=== PATIENT | female | born 1940 | race Caucasian/White ===

== ENCOUNTER → 2016-09-07 | Outpatient (CLI) | payer MEDICARE, BC, OTHER ==
[~2016-09-07] MED LIST: ADALAT CC PO; ALLERGY SHOT; ASPIRIN81 M2 PO; ASPIRINEC PO; CALCIUM 600 + D1 TA1 PO; CALCIUM 600 + D1 TAB PO; CENTRUM SILVER PO; CENTRUM SILVER1 EAC1 PO; COUMADIN5 MG PO; COZAAR100 MG PO; CRESTOR5 MG PO; DIPHENHYDRAMINE25 M2 PO; FERROUS SULFATE PO; FISH OIL500 MG PO; IBUPROFEN400 MG PO; LEVOTHYROXINE88 MCG PO; LEVOXYL88 MC1 PO; MAPAP325 M1 PO; MONTELUKAST SOD10 MG PO; MULTI-VIT/MIN P1 TAB PO; NORVASC10 MG PO; OMEPRAZOLE20 M2 PO; OYSTER CALCIUM500 MG PO; PERCOCET 10/31 UDTA1 PO; PRILOSEC PO; PRILOSEC20 MG PO; SINGULAIR PO; SYNTHROID PO; TEARGEN; WELCHOL625 MG PO; ZETIA PO; ZYRTEC PO; ZYRTEC10 M1 PO
--- NOTE | ~2016-09-07 | BD1 ---
[facility] A Service of [facility] & [facility] RADIOLOGY TEXT RESULTS PATIENT: KARL FERGUSON LOCATION: [facility] : 44 UNIT #: [id number] AGE: [address]: Pratik Armenta MD SEX: F ORDER DR: [id number] [facility] [address] [place], [place] [address] [id number] O MR#: [id number] Acc #: [id number] NAME: KARL FERGUSON : 1940 SEX: F STUDY DATE/TIME: 09/07/2016 10:13 UNIT: [facility] ROOM: STUDY DESCRIPTION: BD Dexa Bone Dens 1+ Site Attending Physician: Pratik Armenta M.D. Referring Physician: Pratik Armenta M.D. Ordering Physician: Pratik Armenta M.D. Primary Care Physician: Pratik Armenta M.D. MEDICAL IMAGING REPORT This report is preliminary unless electronic signature is present EXAM Bone density spine/hip 09/07/2016 HISTORY Osteoporosis. History of osteoporosis in mother. Nonsmoker. Postmenopausal. TECHNIQUE Bone density scanning performed upper 4 lumbar vertebral segments and proximal left femur in a 172 pounds 76-year-old female. COMPARISON STUDIES 07/30/2014. FINDINGS The L1-L4 total bone mineral density is 0.793 g/cm2 for T-score 2.3 standard deviations below mean for reference population normal young individuals and Z-score 0 standard deviations from the mean for age-match population. Compared to 07/30/2014, there has been a 11.4% decrease in bone mineral density in the upper 4 lumbar vertebral segments and this is felt to be statistically significant. In the proximal left femur, the total bone mineral density is 0.741 g/cm2 for T-score 1.6 standard deviations below mean for reference population normal young individuals and Z-score 0.1 deviations above the mean for age-match population. In the left femoral neck specifically, the bone mineral density is 0.582 g/cm2 for T-score 2.4 standard deviations below mean for reference population normal young individuals and Z-score 0.4 standard deviations below mean for age-matched population. Using total bone mineral density as a trending value in this region, there has been a statistically significant 5.7% increase in proximal left femoral bone mineral density. [facility] A Service of [facility] RADIOLOGY TEXT RESULTS PATIENT: KARL FERGUSON LOCATION: [facility] : 44 UNIT #: [id number] AGE: [address]: Pratik Armenta MD SEX: F ORDER DR: IMPRESSION 1. Osteopenia in the left femoral neck. Patient felt to be at increased risk for fracture. Treatment options may be considered. Continued surveillance is recommended. Note is made of osteopenia in the proximal left femur overall as well as in the upper 4 lumbar vertebral segments overall. 2. Statistically significant decreases in bone mineral density since July 2014 in the upper 4 lumbar vertebral segments overall and in the proximal left femur. See total trending data in body of report above. Dictated by... Willard Dial M.D. THIS IS AN ELECTRONICALLY VERIFIED REPORT Willard Dial M.D. at 09/09/2016 5:52 PM TRINH/chilo TD: 09/07/2016 22:15 JOB #: [id number] MEDICAL IMAGING REPORT COPY
== END | disposition home or self-care (01) ==
LOC: CWCC 09:52
DX: M81.0 Age-related osteoporosis without current pathological fracture (principal); M85.89 Other specified disorders of bone density and structure, multiple sites
CPT/HCPCS: 77080

== ENCOUNTER → 2016-10-27 | Day surgery (SDC) | payer MEDICARE, BC ==
--- NOTE | ~2016-10-27 | OR ---
Unit #: [id number] #: [id number] Patient: KARL FERGUSON [id number] [address] [place], [place] [address] [id number] O MR#: [id number] NAME: KARL FERGUSON ROOM: Date of Procedure: 10/27/2016 Admission Date: 10/27/2016 Surgeon: Iron Bains III, M.D. : 1940 Attending Physician: Iron Bains III, M.D. Primary Care Physician: Pratik Armenta M.D. OPERATIVE REPORT PREOPERATIVE DIAGNOSES Anemia, history of reflux, history of colon polyps. POSTOPERATIVE DIAGNOSES Large hiatal hernia, multiple hyperplastic gastric polyps, and severe diverticulosis of the colon. PROCEDURES PERFORMED Esophagogastroduodenoscopy and colonoscopy to cecum. ANESTHESIA 10 mg of Versed and 50 mg of Demerol. SPECIMENS None. COMPLICATIONS None apparent. INDICATIONS FOR PROCEDURE This is a 76-year-old lady, who presented with anemia, history of reflux, and history of colon polyps. She is here today for upper and lower endoscopy. DESCRIPTION OF PROCEDURE After consent was obtained, the patient was brought to the endoscopy suite, placed in the left lateral decubitus position. We titrated the above sedation and I passed an EGD scope easily into the esophagus under direct visualization. She had a fairly significant gag reflex. I was able to advance the scope on into the esophagus. There were no strictures. No signs of esophagitis, but she did have large hiatal hernia where there was approximately one-third of her stomach up above the diaphragm. I was able to advance the scope on through the opening of the hernia into the stomach. The rest of the stomach had benign-appearing hyperplastic gastric polyps. These were similar in appearance to what she had on her prior scopes. The pylorus was patent and the first and second portions of the duodenum appeared normal. I then retroflexed the scope within the cardia and again saw the large hiatal hernia as described above. The scope was straightened and carefully withdrawn. I then performed a rectal exam and did not feel any masses. The scope was placed within the rectal vault. Air was insufflated. I navigated the scope all the way to the cecum without any difficulty. She had severe Unit #: [id number] #: [id number] Patient: KARL FERGUSON diverticulosis mostly on the left side, but with some diverticular disease on the right side as well. There were no polyps or masses. I carefully evaluated the area between 15 and 20 cm where she had polyps on previous scopes and did not see any evidence of local recurrence. There were no other mucosal irregularities. The scope was retroflexed within the rectum. No other masses were seen. The scope was then carefully withdrawn. The patient tolerated the procedure without any problems and she should be on a high-fiber diet and continue her proton pump inhibitor. Dictated by... Iron Bains III, M.D. VCL/herve TD: 10/27/2016 09:17 JOB #: [id number] OPERATIVE REPORT Page 1 of 1 X Iron Bains III, MD PROCEDURE OPERATIVE NOTE
== END | disposition home or self-care (01) ==
LOC: COPS 05:47
DX: K44.9 Diaphragmatic hernia without obstruction or gangrene (principal); K21.9 Gastro-esophageal reflux disease without esophagitis; K31.7 Polyp of stomach and duodenum; Z86.010 Personal history of colon polyps; K57.30 Diverticulosis of large intestine without perforation or abscess without bleeding; D64.9 Anemia, unspecified; I10 Essential (primary) hypertension; E78.00 Pure hypercholesterolemia, unspecified; E78.5 Hyperlipidemia, unspecified; E03.9 Hypothyroidism, unspecified; Z88.2 Allergy status to sulfonamides; Z88.1 Allergy status to other antibiotic agents; Z88.5 Allergy status to narcotic agent
CPT/HCPCS: J2175; J2250